=== PATIENT | female | born 1960 | race Caucasian/White ===

== ENCOUNTER 2017-10-25 07:01 | Day surgery (SDC) | payer OTHER, SELFPAY ==
--- NOTE | 2017-10-25 | COLBX_PTH ---
PATIENT: ROMULO BEAVERS LOC: EN U#:[id number] AGE/SX: 57/F ROOM: RE10/25/[address]: Dr. Edward Jaramillo MD : 1960 BED: DIS: 10/25/2017 SPEC #: [id number] RECD: 10/25/17 15:05 STATUS: MAGDY ERNST #: [id number] NAHUM: 10/25/17 00:[address]: Edward Jaramillo DEPT: SURGICAL PATHOLOGY RECD BY: Marcos Hwang ENTERED: 10/25/17 15:06 SP TYPE: COLON BX OTHR DR: Dr. Miquel Flynn MD Tissues: A - Ascending colon B - Ascending colon C - Descending colon D - Sigmoid colon biopsy E - Rectum, NOS Procedures: Surgery Specimen Level IV HEADER OPERATION: Colonoscopy PRE-OP DIAGNOSIS: Screening TISSUE SUBMITTED: A ? Mid ascending colon polyps (2), B ? Distal ascending colon polyp, C ? Descending colon polyp, D ? 30 cm sigmoid colon polyp, E ? Rectal polyps (2) MICROSCOPIC DIAGNOSIS A. Mid ascending colon polyps, biopsy: Hyperplastic polyps (two fragments). B. Distal ascending colon polyp, biopsy: Fragments of hyperplastic polyp. C. Descending colon polyp, biopsy: Hyperplastic polyp. D. Sigmoid colon polyp at 30 cm, biopsy: Hyperplastic polyp. E. Rectal polyps, biopsy: Hyperplastic polyps (two fragments). AM:yamilex 10/26/17 MICROSCOPIC DESCRIPTION Slides are reviewed. GROSS DESCRIPTION A - Received in fixative is one container labeled with the patient's name and designated ascending colon polyps x2 (mid). The specimen consists of two pieces of titus-pink polyp measuring 0.5 x 0.3 x 0.3 cm and 0.6 x 0.6 x 0.3 cm. The specimen is totally submitted in one cassette. B - Received in fixative is one container labeled with the patient's name and designated ascending colon polyp. The specimen consists of two irregular fragments of light titus soft tissue that measure 1 x 0.3 x 0.1 cm. The specimen is totally submitted in one cassette. C - Received in fixative is one container labeled with the patient's name and designated descending colon polyp. The specimen consists of one irregular fragment of light titus soft tissue that measures 0.6 x 0.3 x 0.1 cm. The specimen is totally submitted in one cassette. D - Received in fixative is one container labeled with the patient's name and designated sigmoid colon polyp at 30 cm. The specimen consists of a pink-red polyp measuring 1.7 x 1.5 x 1 cm. The apparent base is inked. The polyp is sectioned and submitted entirely in one cassette. E - Received in fixative is one container labeled with the patient's name and designated rectal polyps. The specimen consists of two irregular fragments of light titus soft tissue that in aggregate measure 0.4 x 0.2 x 0.1 cm. The specimen is totally submitted in one cassette. / SJ:rg 10/25/17 TC:5 CPT: 95211 x5
[2017-10-25 07:21] VITALS: BP 98/62; PULSE 79; RESP 16; TEMP 36.9; O2SAT 96; BMI 29.9
--- NOTE | 2017-10-25 07:45 | H&P.OPEN ---
Past Medical/Surgical History - Planned Operation Planned Operative Procedure/s: COLONOSCOPY Date of Operative Procedure: 10/25/17 Permit Signed: No S.O.S: No Is This Patient Having a Total Joint: No - Previous Hospitalizations/Surgeries HX Hospitalizations: Yes - 2018 HX of Surgeries: PITITUITARY TUMOR REMOVED/ENDOSCOPIC, DR DEL ANGEL IN [place], [place] 09/24/17. CARPAL TUNNEL BILAT 2013? TONSILS CHILD Any Problems With Anesthesia: No You/Your Family Experience Fever (Hyperthermia) With Anes: No Cholinesterase deficiency: No - Cardiovascular Hx Chest Pain within Last 2 months: No Hx of Irregular Heartbeat and/or Afib: No - ?MURMUR PER HX Hx Heart Attack: No Hx Congestive Heart Failure: No Hx Rheumatic Fever: No Hx Hypertension: No Hx Internal Defibrillator: No Hx Pacemaker: No Hx Cardiac Catheterization: No Hx Cardiac Surgery/Stents/Etc.: No Hx Stress Test: No - ECHO 2010 HX Edema: Yes - PER HX,RESOLVED Hx Pain in Legs when Walking/Leg Cramps: No - Respiratory Chronic Cough: No HX of Shortness of Breath: No Hoarseness: No Hx Chronic Obstructive Pulmonary Disease (COPD): No Hx Asthma: No Hx Emphysema: No Hx Sleep Apnea: No Hx Oxygen Use at Home: No Hx Respiratory Tract Infection/Cold (presently): No Do You Snore Loudly (louder than talking or can be heard): No Do You Often Feel Tired/ Fatigued/ Sleepy Dring Daytime?: No Has Anyone Observed You Stop Breathing During Sleep?: No Result (for STOP score): Negative Hx Smoking: Yes - QUIT 08/2017, FORMER 30 YR HX Smoking Status: Former smoker - Gastrointestinal Hx Gastroesophageal Reflux: No Hx Gastrointestinal Disorders: No - HERE FOR SCREENING Hx Gastrointestinal Bleed: No Hx Ulcer: No Hx Hiatal Hernia: No Difficulty Chewing/Swallowing: No Recent Onset of Swallowing Problems: No Special diet followed at home: No Hx Unplanned Weight Loss of 20#: No HX Unplanned Weight Gain of 20#: No - Neurological Hx Seizures: No HX Syncope/Blackout Spells/Unconsciousness: No Hx CVA/Stroke: No Hx Transient Ischemic Attacks (TIA): No Hx Multiple Sclerosis: No Hx Parkinson's Disease: No Hx Head/Neck Injury: Yes - RECENT SURGERY, PITUITARY TUMOR Hx Headaches: No Hx Back Injury/Pain: No Recent Onset of Speech Difficulty: No Restless Legs: No Does patient have nerve stimulator: No Patient instructed to have device shut off: No Rep notified?: No - Blood Disorder Hx Leukemia: No Bleeding Tendencies: No Hx Deep Vein Thrombosis: No Hx High Cholesterol: Yes - ON MED Blood Transmitted Disease: No Hx Hepatitis: No Hx Cirrhosis: No Hx Anemia: No Hx Blood Disorders: No - Reproduction : No Is Patient Lactating: No Hx Hysterectomy: No Hx Tubal Ligation: No Are You Post Menopause: Yes - Genitourinary Hx Renal Disease: No - Musculoskeletal Hx Arthritis: No Hx Rheumatoid Arthritis: No Hx Gout: No Recent Onset of an Orthopedic Problem: No - Endocrine Hx Diabetes: No Thyroid Disease: No Hx Steroid Therapy: No - Psycho/Social Hx Substance Use: No Hx Alcohol Use: Yes - 1-2 BEERS/WEEK Hx Anxiety: No Hx Depression: No Mental Illness: No Hx Dementia: No - Miscellaneous Hx Cancer: No Recent Exposure to Contagious Disease: No Active MRSA: No Hx of C-Diff: No Any Loose Teeth: Yes - MISSING TEETH, GETTING IMPLANTS Additional information pertinent to anesthesia:: PHONE INTERVIEW. STATES HX ACROMEGALY, TREATED. Allergies bupropion [From Wellbutrin] Allergy (Verified 10/19/17 15:15) Itching Home Medications Medication Instructions Recorded Simvastatin [Zocor] 40 mg PO QHS 10/19/17 - Discharge Is Pt Admitted From a Long-Term, or a Chcf: No Who Could Help: FAMILY After D/C, Where Do you Plan to Go: Return Home - Physical Exam General: Alert, Oriented x3, Cooperative Neck: No JVD Lungs: Normal air movement Cardiovascular: Regular rate, Regular Rhythm Abdomen: Soft, Non Tender, Non-Distended Vital Signs Temp Pulse Resp BP Pulse Ox 98.4 F 79 16 98/62 96 10/25/17 07:21 10/25/17 07:21 10/25/17 07:21 10/25/17 07:21 10/25/17 07:21 Oxygen Delivery Method Room Air Weight: 169 lb 5.04 oz Body Mass Index (BMI) 29.9 Assessment/Plan 57-year-old female for screening colonoscopy 1. Patient reports she is having no issues at this current time. No bleeding or abdominal pain. No inadvertent weight loss. She has never had a colonoscopy in the past and has no family history of colon cancer. 2. I explained endoscopy in detail to the patient. I explained the risks including but not limited to stroke or heart attack with anesthesia, perforation of the GI tract, bleeding, infection. I explained that any of these could necessitate further emergency surgery. The patient understands and all questions were answered sufficiently. The patient wishes to proceed with procedure. Edward Jaramillo MD Pager: [facility] [address], [facility] [address] [place] [address] Office: Surgery Risks - Colonoscopy Risks Include but are not Limited To: Risks include but are not limited to: Bleeding, perforation requiring further surgery, inability to complete colonoscopy requiring barium enema.
--- NOTE | 2017-10-25 08:43 | PCM.OPRPT ---
Problem List (1) Screen for colon cancer Status: Acute Report of Operation Date of Procedure: 10/25/17 Pre-Operative Diagnosis: Screening colonoscopy Post-Operative Diagnosis: 1. Multiple polyps. 2. Diverticulosis Surgery/Procedure Performed:: Colonoscopy with snare polypectomy ?9 Description of Surgical Findings:: The patient had multiple polyps both sessile and pedunculated. Specimen's removed: 1. Mid ascending colon polyps ?2. 2. Distal ascending colon polyp. 3. Descending colon polyp. 4. Sigmoid colon polypnot retrieved. 5. Sigmoid colon polyp at 30 cm. 6. Distal sigmoid colon polypnot retrieved. 7. Rectal polyps ?2 Description of Procedure: The major risks and benefits associated with the procedure were explained to the patient in detail. The patient verbalized understanding and agreement with the same. The patient was brought to the endoscopy suite. After adequate sedation was achieved, the patient was placed in the left lateral decubitus position and a digital rectal exam was performed. This examination was within normal limits. A well-lubricated colonoscope was then inserted into the rectum and advanced under direct visualization to the level of the cecum. The bowel prep was fair. The cecum was identified by both visual and anatomic landmarks. A photograph was taken of the end of the cecum. The scope was then fully withdrawn while examining the color, texture, anatomy and integrity of the mucosa from the cecum to the anal canal. The patient had several polyps. The patient had 2 sessile polyps in the mid ascending colon which were taken with hot snare. The patient also had a polyp in the distal ascending colon which was also taken with a hot snare. The patient had similar polyps in the descending colon. The patient did have a large pedunculated polyp at 30 cm in the sigmoid colon which was taken with cautery snare. The patient also had several rectal polyps which appeared hyperplastic and several of these were biopsied with hot snare. Over 6 minutes were taken to examine the colonic mucosa. Upon reaching the rectum the scope was retroflexed to examine the distal rectal vault. The scope was then straightened and was completely retrieved upon exiting the anal canal and the procedure was terminated. The patient was then transferred to the recovery room in stable condition. Recommendations for follow up: Due to the several polyps as well as the quality of the bowel prep precluding being able to detect all small sessile polyps I would recommend repeat colonoscopy in one year.
--- NOTE | 2017-10-25 08:46 | OP.PCM_ITS ---
Problem List (1) Screen for colon cancer Status: Acute Report of Operation Date of Procedure: 10/25/17 Pre-Operative Diagnosis: Screening colonoscopy Post-Operative Diagnosis: 1. Multiple polyps. 2. Diverticulosis Surgery/Procedure Performed:: Colonoscopy with snare polypectomy ?9 Description of Surgical Findings:: The patient had multiple polyps both sessile and pedunculated. Specimen's removed: 1. Mid ascending colon polyps ?2. 2. Distal ascending colon polyp. 3. Descending colon polyp. 4. Sigmoid colon polyp?not retrieved. 5. Sigmoid colon polyp at 30 cm. 6. Distal sigmoid colon polyp? not retrieved. 7. Rectal polyps ?2 Description of Procedure: The major risks and benefits associated with the procedure were explained to the patient in detail. The patient verbalized understanding and agreement with the same. The patient was brought to the endoscopy suite. After adequate sedation was achieved, the patient was placed in the left lateral decubitus position and a digital rectal exam was performed. This examination was within normal limits. A well-lubricated colonoscope was then inserted into the rectum and advanced under direct visualization to the level of the cecum. The bowel prep was fair. The cecum was identified by both visual and anatomic landmarks. A photograph was taken of the end of the cecum. The scope was then fully withdrawn while examining the color, texture, anatomy and integrity of the mucosa from the cecum to the anal canal. The patient had several polyps. The patient had 2 sessile polyps in the mid ascending colon which were taken with hot snare. The patient also had a polyp in the distal ascending colon which was also taken with a hot snare. The patient had similar polyps in the descending colon. The patient did have a large pedunculated polyp at 30 cm in the sigmoid colon which was taken with cautery snare. The patient also had several rectal polyps which appeared hyperplastic and several of these were biopsied with hot snare. Over 6 minutes were taken to examine the colonic mucosa. Upon reaching the rectum the scope was retroflexed to examine the distal rectal vault. The scope was then straightened and was completely retrieved upon exiting the anal canal and the procedure was terminated. The patient was then transferred to the recovery room in stable condition. Recommendations for follow up: Due to the several polyps as well as the quality of the bowel prep precluding being able to detect all small sessile polyps I would recommend repeat colonoscopy in one year.
[2017-10-25 08:47] VITALS: BP 114/81; BP 98/62; PULSE 69; RESP 14; TEMP 36.6; O2SAT 100
[2017-10-25 08:50] VITALS: BP 120/67; BP 98/62; PULSE 66; RESP 16; O2SAT 100
[2017-10-25 08:55] VITALS: BP 114/71; BP 98/62; PULSE 66; RESP 16; O2SAT 100
[2017-10-25 09:00] VITALS: BP 111/74; BP 98/62; PULSE 60; RESP 16; TEMP 36.1; O2SAT 99
[2017-10-25 09:18] VITALS: BP 98/62
== END 2017-10-25 09:21 | disposition home or self-care (01) ==
LOC: EN 07:01 → AC 07:03
PROVIDERS: Family Provider Family Medicine; PCP Family Medicine; Visit Provider Surgery
PROC: 0DJD8ZZ Inspection of Lower Intestinal Tract, Via Natural or Artificial Opening Endoscopic (ICD-10-PCS; CPT 45378; principal; 2017-10-25 07:55)
DX: Z12.11 Encounter for screening for malignant neoplasm of colon (principal); K57.90 Diverticulosis of intestine, part unspecified, without perforation or abscess without bleeding; K62.1 Rectal polyp; K63.5 Polyp of colon; E78.00 Pure hypercholesterolemia, unspecified; Z87.891 Personal history of nicotine dependence
CPT/HCPCS: 45380; 45385; 88305; J7120

== ENCOUNTER → 2017-12-09 14:07 | Outpatient (CLI) | payer OTHER, SELFPAY ==
--- NOTE | 2017-12-09 14:09 | ECHOD_ITS ---
Reason For Study: CAD/ASHD Procedure This was a 2D Doppler, Color Flow transthoracic echocardiogram. Exam performed in department. Left Ventricle Normal size and thickness. The estimated ejection fraction is 65 %. No regional wall motion abnormalities noted. Right Ventricle Normal size and thickness. Normal systolic function. Atria Normal left atrium. Normal right atrium. Normal atrial septum. Mitral Valve Posterior leaflet mitral valve prolapse. Mild (1+) mitral valve insufficiency. Tricuspid Valve Normal tricuspid valve. Mild (1+) tricuspid valve insufficiency. Right ventricular systolic pressure estimated to be 24 mmHg. Aortic Valve Normal aortic valve. Trisinus/trileaflet aortic valve. Pulmonic Valve Normal pulmonic valve. Great Vessels Normal aortic root. Normal arch. Normal inferior vena cava. Inferior vena cava collapse with sniff. Pericardium/Pleural No pericardial effusion. Medication Performed a rapid injection of agitated mix of 9 cc saline and 1cc air to assess for atrial septal defect. MMode/2D Measurements & Calculations LVIDd: 5.4 cm IVSd: 0.99 cm Ao root diam: 3.5 cm LVIDs: 3.3 cm LVPWd: 0.82 cm LA dimension: 3.5 cm RVDd: 3.3 cm FS: 38.7 % LAV(MOD-bp): 45.2 ml LA A4 area: 19.5 cm2 RA A4 area: 14.3 cm2 LAV(MOD-bp) Indexed: 24.9 ml/m2 LAV(MOD-sp2): 38.3 ml LAV(MOD-sp4): 49.1 ml Doppler Measurements & Calculations MV E max joshua: 57.8 cm/sec Lat Peak E' Joshua: 9.6 cm/sec Med Peak E' Joshua: 6.6 cm/sec MV A max joshua: 52.4 cm/sec E/E' lat: 6.1 E/E' med: 8.8 MV E/A: 1.1 Ao V2 max: 194.8 cm/sec LV V1 max: 185.4 cm/sec PA V2 max: 96.1 cm/sec Ao max P.2 mmHg LV V1 max P.7 mmHg Ao V2 mean: 147.8 cm/sec Ao mean P.5 mmHg Ao V2 VTI: 41.4 cm TR max joshua: 216.5 cm/sec TR max P.8 mmHg Interpretation Summary The estimated ejection fraction is 65 %. Mild posterior leaflet mitral valve prolapse. Mild (1+) mitral valve insufficiency. Mild (1+) tricuspid valve insufficiency. Right ventricular systolic pressure estimated to be 24 mmHg. Compared to echo report dated 12/29/2010, no appreciable changes noted. Ordering Physician: Kd Gomez Referring Physician: Miquel Flynn Performed By: Griselda Antunez RDCS, RVT
== END ==
PROVIDERS: Family Provider Family Medicine; PCP Family Medicine; Visit Provider Internal Medicine Cardiovascular Disease
DX: R00.2 Palpitations (principal); F17.200 Nicotine dependence, unspecified, uncomplicated; E22.0 Acromegaly and pituitary gigantism
CPT/HCPCS: 93306; A4216

== ENCOUNTER → 2018-05-26 14:16 | Outpatient (CLI) | payer OTHER, SELFPAY ==
[2018-05-26 12:18] LABS: Hemoglobin A1c 5.7 % (4.2-6.3)
[2018-05-26 12:26] LABS: Anion Gap 8 (5-15); BUN 15 mg/dL (7-18); BUN/Creat Ratio 16.9 RATIO (10-20); Calcium,Total 9.6 mg/dL (8.5-10.1); Chloride 105 mmol/L (98-107); Cholesterol 195 mg/dL (200); Creatinine, Serum 0.89 mg/dL (0.55-1.02); EST Glomerular Filtration Rate 69 mL/min (>60); Est Glom Filt Rate - Afr Amer 83 mL/min (>60); Glucose 98 mg/dL (74-106); High Density Lipoprotein 60 mg/dL; Potassium 4.7 mmol/L (3.5-5.1); Sodium Level 140 mmol/L (136-145); Triglycerides 102 mg/dL; Very Low Density Lipoprotein 20 mg/dL (5-40)
== END ==
PROVIDERS: Family Provider Family Medicine; PCP Family Medicine; Visit Provider Family Medicine
DX: E78.5 Hyperlipidemia, unspecified (principal); R73.01 Impaired fasting glucose
CPT/HCPCS: 36415; 80048; 80061; 83036

== ENCOUNTER → 2018-08-25 13:36 | Outpatient (CLI) | payer OTHER, SELFPAY ==
--- NOTE | 2018-08-25 13:38 | CT_ITS ---
STUDY: LOW DOSE CT LUNG CANCER SCREENING REASON FOR EXAM: Female, 58 years old. Long history of smoking RADIATION DOSAGE (If Supplied By Facility): CTDIvol = ( 3.02 ) mGy, DLP = ( 104.58 ) mGycm TECHNIQUE: No contrast was administered. Low dose technique was utilized (average mAS-38 and kVp 120). 1.25 mm axial source images with a slice interval of 1.25-mm were reconstructed in lung windows. 2.5 mm axial source images with a slice interval of 2.5-mm were reconstructed in lung windows. 5.0 mm axial source images with a slice interval of 5.0-mm were reconstructed in soft tissue windows. Nodule measured using lung windows on PACS and/or independent workstation with automated measurement of minimum and maximum diameter. Nodule measurement reported as average diameter rounded to the nearest whole number. Growth is defined as an increase ins size of greater than 1.5 mm. COMPARISON: None. NODULES: There is a calcified granuloma in the lateral basal segment of right lung lower lobe measures 5 mm. 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 There is no demonstrated pleural abnormality. Normal heart and pericardium. Normal mediastinum. Normal hilar regions. Normal unenhanced pulmonary arteries. Normal aorta arch and descending thoracic aorta. There are multi-level degenerative changes of the thoracic spine. There is a moderate compression fracture of L1. There is no demonstrated abnormality of the visualized upper abdomen. CT/Low Dose CT Lung Screening IMPRESSION: Lung-RADS category 2. Benign findings. Recommendation: Routine screening CT scan in one year. IMPORTANT NOTES FOR USE: ACR Lung-RADS Version 1.0 Assessment Categories Release Date: December 31, 2013 Category: Coded 0-4 bases on nodule(s) with highest degree of suspicion. Negative screen is defined as categories 1 and 2; a positive screen is defined as categories 3 and 4. Category 3 and 4A nodules that are unchanged on interval CT should be coded as category 2, and individuals returned to screening in 12 months. Category 4X: Category 3 or 4 nodules with additional imaging findings that increase the suspicion of lung cancer, such as spiculation, GGN that doubles in size in 1 year, enlarged lymph notes, etc. Category Modifiers: S (significant finding unrelated to lung cancer) and C (prior history of treated lung cancer) may be added to the 0-4 Lung-RADS Electronically Signed: Jeffrey Ibanez MD at 8:02 EST Tel , Service support ,
== END ==
PROVIDERS: Family Provider Family Medicine; PCP Family Medicine; Referring Provider Family Medicine; Visit Provider Family Medicine
DX: Z12.11 Encounter for screening for malignant neoplasm of colon (principal); Z87.891 Personal history of nicotine dependence
CPT/HCPCS: G0297

== ENCOUNTER → 2018-11-14 12:16 | Outpatient (CLI) | payer OTHER, SELFPAY ==
--- NOTE | 2018-11-14 12:23 | MRI_ITS ---
STUDY: MRI BRAIN WITH AND WITHOUT CONTRAST (ATTENTION PITUITARY GLAND) REASON FOR EXAM: Female, 58 years old. 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 Gadavist 8 IV was administered for the contrast portion of the examination. COMPARISON: January 04, 2018 FINDINGS: Postoperative changes involving the pituitary gland. No recurrent or residual pituitary nodules or masses are seen. Cavernous sinuses are normal. The pituitary stalk is normal. The optic chiasm is normal. Normal size of the ventricles and extra-axial spaces for the patient's age. 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 Normal bilateral basal ganglia. Normal thalami. Normal flow voids within the major intracranial circulation suggesting patency by spin echo criteria. Normal venous enhancement. There is no enhancing intra-axial or extra-axial abnormality. There is no extra-axial fluid accumulation. Normal tectal plate and pineal gland. Normal midbrain, jose david and medulla. Normal cerebellum. Normal basal cisterns. Normal bilateral temporal bones. Normal bilateral internal auditory canals. No demonstrated orbital abnormality, within the constraints of a routine brain study. Postoperative changes involving the central sphenoid. Normal calvarium and skull base. Normal visualized upper cervical spine. Normal visualized soft tissue structures. MRI/Brain W/WO Contrast IMPRESSION: Postoperative changes as described. No recurrent or residual pituitary nodule or mass is seen. 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 Electronically Signed: Junior Juárez MD at 14:16 EDT Tel , Service support ,
[2018-11-14 13:01] LABS: CREATININE FINGERSTICK 0.9 mg/dL (0.55-1.02); EGFR FINGERSTICK > 60.0000 mL/min (>60)
== END ==
PROVIDERS: Family Provider Family Medicine; PCP Family Medicine; Referring Provider Internal Medicine Endocrinology, Diabetes & Metabolism; Visit Provider Internal Medicine Endocrinology, Diabetes & Metabolism
DX: E22.0 Acromegaly and pituitary gigantism (principal)
CPT/HCPCS: 70553; A9585

== ENCOUNTER → 2019-08-15 08:03 | Outpatient (CLI) | payer OTHER, SELFPAY ==
[2019-08-15 12:37] LABS: Hemoglobin A1c 5.9 % (4.2-6.3)
[2019-08-15 12:42] LABS: Anion Gap 3 (5-15); BUN 17 mg/dL (7-18); Calcium,Total 9.1 mg/dL (8.5-10.1); Chloride 109 mmol/L (98-107); Cholesterol 193 mg/dL (200); EST Glomerular Filtration Rate 68 mL/min (>60); Est Glom Filt Rate - Afr Amer 82 mL/min (>60); Glucose 98 mg/dL (74-106); High Density Lipoprotein 61 mg/dL; Potassium 4.3 mmol/L (3.5-5.1); Sodium Level 141 mmol/L (136-145); T4 Free Direct 0.76 ng/dL (0.76-1.46); Thyroid Stim Hormone (TSH) 0.53 uIU/mL (0.358-3.74); Triglycerides 67 mg/dL; Very Low Density Lipoprotein 13 mg/dL (5-40)
== END ==
PROVIDERS: Family Provider Family Medicine; PCP Family Medicine; Referring Provider Family Medicine; Visit Provider Family Medicine
DX: E78.5 Hyperlipidemia, unspecified (principal); R73.01 Impaired fasting glucose
CPT/HCPCS: 36415; 80048; 80061; 83036; 84439; 84443

== ENCOUNTER → 2020-09-30 17:45 | Outpatient (CLI) | payer OTHER, SELFPAY | PROVIDERS: PCP Family Medicine; Referring Provider Family Medicine; Visit Provider Family Medicine | DX: U07.1 COVID-19 (principal); R50.9 Fever, unspecified; R53.83 Other fatigue; R05 Cough | CPT/HCPCS: 87635; C9803; U0003 ==

== ENCOUNTER → 2020-12-16 08:07 | Outpatient (CLI) | payer OTHER, SELFPAY ==
[2020-12-16 09:21] LABS: AST(SGOT) 15 U/L (15-37); Alanine Aminotransfer ALT/SGPT 25 U/L (13-56); Albumin, Serum 3.7 g/dL (3.2-5.0); Alkaline Phosphatase 52 U/L (45-117); Anion Gap 6 (5-15); BUN 14 mg/dL (7-18); BUN/Creat Ratio 16.1 RATIO (10-20); Calcium,Total 9.6 mg/dL (8.5-10.1); Chloride 106 mmol/L (98-107); Cholesterol 223 mg/dL (200); Creatinine, Serum 0.87 mg/dL (0.55-1.02); EST Glomerular Filtration Rate 70 mL/min (>60); Est Glom Filt Rate - Afr Amer 85 mL/min (>60); Free T3 2.8 pg/mL (2.18-3.98); Globulin 3.7 g/dL (2.2-4.2); Glucose 98 mg/dL (74-106); High Density Lipoprotein 58 mg/dL; Potassium 4.3 mmol/L (3.5-5.1); Protein, Total 7.4 g/dL (6.4-8.2); Sodium Level 140 mmol/L (136-145); Thyroid Stim Hormone (TSH) 0.46 uIU/mL (0.358-3.74); Triglycerides 140 mg/dL; Very Low Density Lipoprotein 28 mg/dL (5-40)
== END ==
PROVIDERS: PCP Family Medicine; Referring Provider Family Medicine; Visit Provider Family Medicine
DX: E22.0 Acromegaly and pituitary gigantism (principal); E78.5 Hyperlipidemia, unspecified; E04.1 Nontoxic single thyroid nodule
CPT/HCPCS: 36415; 80053; 80061; 84439; 84443; 84481

== ENCOUNTER → 2020-12-26 09:56 | Outpatient (CLI) | payer OTHER, SELFPAY ==
[2020-12-26 09:18] VITALS: BMI 30.5
[2020-12-26 12:50] LABS: Vitamin D,25 Hydroxy 29.5 ng/mL
[2020-12-26 12:53] LABS: Hemoglobin A1c 5.7 % (3.8-5.6)
[2020-12-26 13:17] LABS: AST(SGOT) 19 U/L (15-37); Alanine Aminotransfer ALT/SGPT 25 U/L (13-56); Albumin, Serum 3.8 g/dL (3.2-5.0); Alkaline Phosphatase 61 U/L (45-117); Anion Gap 4 (5-15); BUN 14 mg/dL (7-18); BUN/Creat Ratio 16.5 RATIO (10-20); Calcium,Total 9.4 mg/dL (8.5-10.1); Chloride 106 mmol/L (98-107); Creatinine, Serum 0.85 mg/dL (0.55-1.02); EST Glomerular Filtration Rate 72 mL/min (>60); Est Glom Filt Rate - Afr Amer 87 mL/min (>60); Ferritin 53 ng/mL (8-252); Globulin 3.7 g/dL (2.2-4.2); Glucose 103 mg/dL (74-106); Luteinizing Hormone 25.7 mIU/mL; Potassium 4.2 mmol/L (3.5-5.1); Prolactin 8.6 ng/mL; Protein, Total 7.5 g/dL (6.4-8.2); Sodium Level 138 mmol/L (136-145); T4 Free Direct 0.78 ng/dL (0.76-1.46); Thyroid Stim Hormone (TSH) 0.52 uIU/mL (0.358-3.74)
[2020-12-28 08:06] LABS: Somatomedin C 198 ng/mL (57-202)
== END ==
PROVIDERS: PCP Family Medicine; Referring Provider Internal Medicine Endocrinology, Diabetes & Metabolism; Visit Provider Internal Medicine Endocrinology, Diabetes & Metabolism
DX: E04.1 Nontoxic single thyroid nodule (principal); E22.0 Acromegaly and pituitary gigantism; E55.9 Vitamin D deficiency, unspecified; E61.1 Iron deficiency
CPT/HCPCS: 36415; 80053; 82306; 82728; 83001; 83002; 83036; 84146; 84305; 84439; 84443

== ENCOUNTER → 2020-12-29 13:35 | Outpatient (CLI) | payer OTHER, SELFPAY ==
[2020-12-26 09:18] VITALS: BMI 30.5
[2020-12-31 12:19] LABS: HPV APTIMA, High Risk Negative (Negative)
== END ==
PROVIDERS: PCP Family Medicine; Visit Provider Obstetrics & Gynecology
DX: Z12.4 Encounter for screening for malignant neoplasm of cervix (principal)
CPT/HCPCS: 87624; 88175; G0145

== ENCOUNTER → 2021-01-12 14:39 | Outpatient (CLI) | payer OTHER, SELFPAY ==
[2020-12-26 09:18] VITALS: BMI 30.5
--- NOTE | 2021-01-12 14:43 | BI_ITS ---
MAMMOGRAPHY - BILATERAL SCREENING REASON FOR EXAM: Female, 60 years old. Routine annual screening examination. PERTINENT HISTORY: Non-contributory. TECHNIQUE: Digital bilateral breast michael (3D mammographic acquisition) in the CC and MLO projections. 2-D mediolateral oblique (MLO) and craniocaudad (CC) views of both breasts were obtained. CAD: Full Field Digital Mammography with Computer Added Detection was performed. COMPARISON: Comparison is made with prior study dated 02/22/2013. FINDINGS: Breast Composition: The breasts are extremely dense, which lowers the sensitivity of mammography. There are no dominant masses or suspicious calcifications. No other significant abnormalities are identified. There has been no significant change since the prior study. BI/SCRN MAMM (CAD)W/MICHAEL BILAT IMPRESSION: Stable bilateral screening mammogram. Yearly follow-up mammogram recommended. (A) ASSESSMENT CATEGORY: BIRADS Category 1: Negative. A letter regarding these results will be sent to the patient by the facility within 30 days. Approximately 10% of breast cancers are not detected by mammography. A normal mammogram should not delay biopsy of a clinically suspicious abnormality. [id number] Electronically Signed: Vijay Munroe MD at 15:16 EDT , Service support ,
== END ==
PROVIDERS: PCP Family Medicine; Referring Provider Obstetrics & Gynecology; Visit Provider Obstetrics & Gynecology
DX: Z12.31 Encounter for screening mammogram for malignant neoplasm of breast (principal)
CPT/HCPCS: 77063; 77067

== ENCOUNTER → 2022-08-14 | Outpatient (CLI) | payer OTHER, SELFPAY ==
[2022-08-14 11:52] LABS: Microalbumin:Creatinine Ratio 255.6 mg/g CRE (<30 mg/g CRE)
[2022-08-14 13:36] LABS: AST(SGOT) 16 U/L (15-37); Alanine Aminotransfer ALT/SGPT 23 U/L (13-56); Albumin, Serum 3.5 g/dL (3.2-5.0); Alkaline Phosphatase 64 U/L (45-117); Anion Gap 5 (5-15); BUN 15 mg/dL (7-18); BUN/Creat Ratio 16.9 RATIO (10-20); Calcium,Total 9.2 mg/dL (8.5-10.1); Chloride 108 mmol/L (98-107); Cholesterol 207 mg/dL (200); Creatinine, Serum 0.88 mg/dL (0.55-1.02); EST Glomerular Filtration Rate 68 mL/min (>60); Est Glom Filt Rate - Afr Amer 83 mL/min (>60); Globulin 3.6 g/dL (2.2-4.2); Glucose 104 mg/dL (74-106); High Density Lipoprotein 62 mg/dL; Potassium 4.2 mmol/L (3.5-5.1); Prolactin 11.1 ng/mL; Protein, Total 7.1 g/dL (6.4-8.2); Sodium Level 139 mmol/L (136-145); T4 Free Direct 0.81 ng/dL (0.76-1.46); Triglycerides 104 mg/dL; Very Low Density Lipoprotein 21 mg/dL (5-40)
[2022-08-19 10:24] LABS: Insulin Like Growth Factor 197 ng/mL (57-202)
== END | disposition home or self-care (01) ==
LOC: LAB 10:23
PROVIDERS: PCP Family Medicine; Referring Provider Internal Medicine Endocrinology, Diabetes & Metabolism; Visit Provider Internal Medicine Endocrinology, Diabetes & Metabolism
DX: D35.2 Benign neoplasm of pituitary gland (principal); E04.1 Nontoxic single thyroid nodule; E78.5 Hyperlipidemia, unspecified; Z86.39 Personal history of other endocrine, nutritional and metabolic disease
CPT/HCPCS: 36415; 80053; 80061; 82043; 82533; 82570; 84146; 84305; 84439; 84443; 84481

== ENCOUNTER → 2022-08-17 | Outpatient (CLI) | payer OTHER, SELFPAY ==
--- NOTE | 2022-08-17 13:30 | CT_ITS ---
STUDY: LOW DOSE CT LUNG CANCER SCREENING REASON FOR EXAM: Female, 61 years old. Lung Cancer screening -- and gt; 20 pk yr asymptomatic; former smoker RADIATION DOSAGE (If Supplied By Facility): CTDIvol = ( 2.39 ) mGy, DLP = ( 77.43 ) mGycm TECHNIQUE: No contrast was administered. Low dose technique was utilized (average mAS-38 and kVp 120). 1.25 mm axial source images with a slice interval of 1.25-mm were reconstructed in lung windows. 2.5 mm axial source images with a slice interval of 2.5-mm were reconstructed in lung windows. 5.0 mm axial source images with a slice interval of 5.0-mm were reconstructed in soft tissue windows. COMPARISON: Comparison is made with prior examination dated 08/25/2018. NODULES: Stable calcified granuloma in the lateral basal segment of the right lower lung. This measures 5 mm Emphysema: Mild degree of emphysematous changes. Endobronchial lesion: None Aorta: Atherosclerotic calcific plaques. CORONARY ARTERIES: Coronary artery calcification is seen. Heart: Unremarkable Pulmonary artery: Unremarkable Mediastinal nodes: Small benign-appearing mediastinal lymph nodes. Other chest and abdominal findings: CT/Low Dose CT Lung Screening IMPRESSION: Lung-RADS category 2 - Continue annual screening with LDCT in 12 months. IMPORTANT NOTES FOR USE: ACR Lung-RADS Version 1.1 Assessment Categories Release Date: 2018 Category: Coded 0-4 bases on nodule(s) with highest degree of suspicion. Negative screen is defined as categories 1 and 2; a positive screen is defined as categories 3 and 4. Category 3 and 4A nodules that are unchanged on interval CT should be coded as category 2, and individuals returned to screening in 12 months. Category 4X: Category 3 or 4 nodules with additional imaging findings that increase the suspicion of lung cancer, such as spiculation, GGN that doubles in size in 1 year, enlarged lymph notes, etc. Category Modifiers: S (significant finding unrelated to lung cancer) Electronically Signed: Vijay Munroe MD at 14:21 EST ,
== END | disposition home or self-care (01) ==
LOC: CT 13:30
PROVIDERS: PCP Family Medicine; Referring Provider Nurse Practitioner Family; Visit Provider Nurse Practitioner Family
DX: Z87.891 Personal history of nicotine dependence (principal); I70.0 Atherosclerosis of aorta; I25.10 Atherosclerotic heart disease of native coronary artery without angina pectoris; Z12.2 Encounter for screening for malignant neoplasm of respiratory organs; R91.8 Other nonspecific abnormal finding of lung field
CPT/HCPCS: 71271

== ENCOUNTER → 2022-10-01 | Outpatient (CLI) | payer OTHER, SELFPAY ==
--- NOTE | 2022-10-01 09:19 | US_ITS ---
STUDY: ULTRASOUND BREAST - LEFT REASON FOR EXAM: Female, 62 years old. Lateral breast lump. TECHNIQUE: Axial and longitudinal images of the LEFT breast were performed with a high resolution ultrasound transducer. # OF IMAGES: 29 COMPARISON: Comparison is made with prior mammogram done earlier today. FINDINGS: LEFT Breast: The lateral half of the left breast was examined with ultrasound. There is dense fibroglandular tissue. No solid or cystic mass lesion is seen. US/Breast Limited Unilateral IMPRESSION: No sonographic abnormality is seen. ASSESSMENT CATEGORY: BIRADS Category 1: Negative. A letter regarding these results will be sent to the patient by the facility within 30 days. Electronically Signed: Vijay Munroe MD at 11:12 EST ,
--- NOTE | 2022-10-01 09:19 | BI_ITS ---
MAMMOGRAPHY - BILATERAL DIAGNOSTIC REASON FOR EXAM: Female, 62 years old. Left lateral breast mass. PERTINENT HISTORY: Non-contributory. TECHNIQUE: Digital bilateral breast thelma (3D mammographic acquisition) in the CC and MLO projections. 2-D mediolateral oblique (MLO) and craniocaudad (CC) views of both breasts were obtained. CAD: Full Field Digital Mammography with Computer Added Detection was performed. COMPARISON: Comparison is made with prior study of 01/12/2021 and 02/22/2013. FINDINGS: Breast Composition: The breasts are extremely dense, which lowers the sensitivity of mammography. There are no dominant masses or suspicious calcifications. No other significant abnormalities are identified. There has been no significant change since the prior study. BI/DIAG MAMM W/CAD, BILAT IMPRESSION: Stable bilateral diagnostic mammogram. With the patient''s history of a palpable lump in the lateral aspect of the left breast, correlation with ultrasound is recommended. ASSESSMENT CATEGORY: BIRADS Category 0: Incomplete. Need additional imaging evaluation. A letter regarding these results will be sent to the patient by the facility within 30 days. Approximately 10% of breast cancers are not detected by mammography. A normal mammogram should not delay biopsy of a clinically suspicious abnormality. Electronically Signed: Vijay Munroe MD at 10:25 EST ,
== END | disposition home or self-care (01) ==
PROVIDERS: PCP Family Medicine; Referring Provider Obstetrics & Gynecology Gynecology; Visit Provider Obstetrics & Gynecology Gynecology
DX: Z01.419 Encounter for gynecological examination (general) (routine) without abnormal findings (principal); R92.2 Inconclusive mammogram; N63.0 Unspecified lump in unspecified breast; R19.04 Left lower quadrant abdominal swelling, mass and lump; Z86.39 Personal history of other endocrine, nutritional and metabolic disease
CPT/HCPCS: 76642; 77062; 77066; G0279

== ENCOUNTER → 2022-11-05 | Outpatient (CLI) | payer OTHER, SELFPAY ==
[2022-11-05 17:25] LABS: Thyroid Stim Hormone (TSH) 0.08 uIU/mL (0.358-3.74)
== END | disposition home or self-care (01) ==
LOC: LAB 14:50
PROVIDERS: PCP Family Medicine; Visit Provider Internal Medicine Endocrinology, Diabetes & Metabolism
DX: R94.6 Abnormal results of thyroid function studies (principal)
CPT/HCPCS: 36415; 84439; 84443; 84481

== ENCOUNTER → 2023-01-03 | Outpatient (CLI) | payer OTHER, SELFPAY ==
--- NOTE | 2023-01-03 12:23 | US_ITS ---
STUDY: ULTRASOUND OF THE FEMALE PELVIS - COMPLETE REASON FOR EXAM: Female, 62 years old. LLQ MASS/ fullness felt by doctor during pap smear -- hx of acromegaly LMP: Patient is postmenopausal. TECHNIQUE: Transabdominal and Transvaginal TECHNICAL QUALITY: Adequate. COMPARISON: None. FINDINGS: The uterus is retroverted and is in a midline position. The uterus measures 6.6 cm x 2.4 cm x 3.6 cm. There is a Nabothian cyst of the cervix. The endometrium is thickened and measures 6 mm in thickness, and is heterogeneous (striated). There is no demonstrated endometrial mass. There is no demonstrated myometrial mass. I.U.D. - The patient does not have an I.U.D. The right ovary is visualized. The right ovary measures 1.9 cm x 1.7 cm x 1.2 cm. There is no right ovarian cyst or ovarian mass. There is no visualized right adnexal mass or complex lesion. There is normal arterial and normal venous vascularity. The left ovary is visualized. The left ovary measures 2 cm x 1.6 x 1.4 cm. There is no left ovarian cyst or ovarian mass. There is no visualized left adnexal mass or complex lesion. There is normal arterial and normal venous vascularity. There is minimal fluid in the cul-de-sac. The pre void volume of the bladder was 219 ml. US/Pelvic w/ Transvaginal IMPRESSION: Endometrial thickening. Electronically Signed: Vijay Munroe MD at 15:06 EDT ,
== END | disposition home or self-care (01) ==
PROVIDERS: PCP Family Medicine; Referring Provider Obstetrics & Gynecology Gynecology; Visit Provider Obstetrics & Gynecology Gynecology
DX: N63.0 Unspecified lump in unspecified breast (principal); R19.04 Left lower quadrant abdominal swelling, mass and lump; Z12.4 Encounter for screening for malignant neoplasm of cervix; Z86.39 Personal history of other endocrine, nutritional and metabolic disease
CPT/HCPCS: 76830; 76856

== ENCOUNTER → 2023-09-13 | Outpatient (CLI) | payer MEDICARE, BC, SELFPAY ==
--- NOTE | 2023-09-13 13:29 | CT_ITS ---
STUDY: LOW DOSE CT LUNG CANCER SCREENING REASON FOR EXAM: Female, 63 years old. Lung cancer screening. The patient smoked 1 pack per day for 50 years. 4 month history of shortness of breath. RADIATION DOSAGE (If Supplied By Facility): CTDIvol = ( 3.02 ) mGy, DLP = ( 99.68 ) mGycm TECHNIQUE: No contrast was administered. Low dose technique was utilized (average mAS-38 and kVp 120). 1.25 mm axial source images with a slice interval of 1.25-mm were reconstructed in lung windows. 2.5 mm axial source images with a slice interval of 2.5-mm were reconstructed in lung windows. 5.0 mm axial source images with a slice interval of 5.0-mm were reconstructed in soft tissue windows. COMPARISON: Comparison is made with prior examination dated August 17, 2022. NODULES: Stable calcified granuloma in the lateral basal segment of the right lower lobe. Emphysema: Mild emphysematous changes. Endobronchial lesion: None Aorta: Atherosclerotic plaque formation CORONARY ARTERIES: Coronary artery calcification is seen. Heart: Unremarkable Pulmonary artery: Unremarkable Mediastinal nodes: Small benign-appearing mediastinal lymph nodes. Other chest and abdominal findings: Small hiatal hernia. CT/Low Dose CT Lung Screening IMPRESSION: Lung-RADS category 2 - Continue annual screening with LDCT in 12 months. IMPORTANT NOTES FOR USE: ACR Lung-RADS Version 1.1 Assessment Categories Release Date: 2018 Category: Coded 0-4 bases on nodule(s) with highest degree of suspicion. Negative screen is defined as categories 1 and 2; a positive screen is defined as categories 3 and 4. Category 3 and 4A nodules that are unchanged on interval CT should be coded as category 2, and individuals returned to screening in 12 months. Category 4X: Category 3 or 4 nodules with additional imaging findings that increase the suspicion of lung cancer, such as spiculation, GGN that doubles in size in 1 year, enlarged lymph notes, etc. Category Modifiers: S (significant finding unrelated to lung cancer) Electronically Signed: Vijay Munroe MD at 14:08 EST ,
--- OUTSIDE RECORDS SUMMARY | 2023-09-13 15:21 | XMS RPT_ITS | CCD ---
Author Name Unknown Address [id number] [place] [id number] Organization [facility] Care Team Providers Care Office Electrician Name Role Phone HASAN, GERMAN Unavailable Unavailable HASAN, GERMAN Unavailable Unavailable HASAN, GERMAN Unavailable Unavailable HASAN, GERMAN Unavailable Unavailable HASAN, GERMAN Unavailable Unavailable HASAN, GERMAN Unavailable Unavailable HASAN, GERMAN Unavailable Unavailable HASAN, GERMAN Unavailable Unavailable HASAN, GERMAN Unavailable Unavailable HASAN, GERMAN Unavailable Unavailable HASAN, GERMAN Unavailable Unavailable HASAN, GERMAN Unavailable Unavailable DANNI MAST, DR DIEGO Primary Care Unavailable OMAIRA JONES, FILIPE Attending Unavailable Allergies Allergy Classification Reported Allergen(s) Allergy Type Date of Onset Reaction(s) Facility (1 source) buPROPion; Translations: [BUPROPION HCL] Drug Allergy [address] [facility] Repository (1 source) NO KNOWN ALLERGIES; Translations: [NO KNOWN ALLERGIES] Propensity to adverse reactions to drug (disorder) [facility] Repository Problems Active Problems Problem Classification Problem Date Documented Da te Episodic/Chronic Other endocrine disorders (2 sources) Acromegaly and pituitary gigantism; Translations: [Disorder of pituitary gland, unspecified] Onset: 07-15-2017 Chronic Unclassified (1 source) Unknown / UNK(Unknown) Onset: 07-14-2017 Past or Other Problems Problem Classification Problem Date Documented Da te Episodic/Chronic Nonmalignant breast conditions (2 sources) Unspecified lump in unspecified breast; Translations: [Unspecified lump in unspecified breast] Onset: 09-20-2022 Episodic Other gastrointestinal disorders (2 sources) Left lower quadrant abdominal swelling, mass and lump; Translations: [Left lower quadrant abdominal swelling, mass and lump] Onset: 09-20-2022 Episodic Other nutritional; endocrine; and metabolic disorders (2 sources) Personal history of other endocrine, nutritional and metabolic disease; Translations: [Personal history of other endocrine, nutritional and metabolic disease] Onset: 09-20-2022 Episodic Unclassified (4 sources) Abnormal results of thyroid function studies; Translations: [Other specified abnormal findings of blood chemistry] Onset: 07-27-2017 Episodic Results Test Name Value Interpretation Reference Range Facil ity Encounters Encounter Date Encounter Type Care Provider Facility Start: 09-20-2022 End: 09-25-[address] JOHNATHON RAZO DO Facility:B Start: 09-20-2022 End: 09-25-2022 Encounter for gynecological examination (general) (routine) without abnormal findings FILIPE CASTANO MD Facility:[facility] Start: 04-12-2018 End: 04-12-2018 Patient encounter [facility] Start: 02-01-2018 Patient encounter [facility] Start: 02-01-2018 End: 02-01-2018 [facility]: 01-04-2018 End: 01-04-2018 Patient encounter [facility] Start: 12-20-2017 End: 12-20-2017 Patient encounter [facility] Start: 11-07-2017 End: 11-07-2017 Patient encounter [facility] Start: 11-01-2017 End: 11-01-2017 Patient encounter [facility] Start: 08-02-2017 End: 08-02-2017 Patient encounter [facility] Start: 07-27-2017 End: 08-02-2017 Patient encounter [facility] Start: 07-15-2017 End: 07-15-2017 Patient encounter [facility] Start: 07-14-2017 End: 07-14-2017 Patient encounter [facility] Payers Date Payer Category Payer Unknown [id number] 1960 Unknown [id number] Summary Purpose Family History No Family History Records FoundNo Family History Records Found Advance Directives No Advanced Directives Records FoundNo Advanced Directives Records Found Additional Source Comments INFORMATION SOURCE (unrecogn ized section and content) DATE CREATED AUTHOR AUTHOR'S DOYLE OVIEDO 02/12/[address] [facility] [place] FOR RECORDS PERTAINING TO PATIENTS WHO ARE OR HAVE BEEN ENROLLED IN A CHEMICAL DEPENDENCY/SUBSTANCEABUSE PROGRAM, SOME INFORMATION MAY BE OMITTED. This clinical summary was aggregated from multiple sources. Caution should be exercised in using it in the provision of clinical care. This summary normalizes information from multiple sources, and as a consequence, information in this document may materially change the coding, format and clinical context of patient data. In addition, data may be omitted in some cases. CLINICAL DECISIONS SHOULD BE BASED ON THE PRIMARY CLINICAL RECORDS. [facility] [employer] [facility]. provides no warranty or guarantee of the accuracy or completeness of information in this document.
== END | disposition home or self-care (01) ==
LOC: CT 13:29
PROVIDERS: PCP Nurse Practitioner Family; Referring Provider Nurse Practitioner Family; Visit Provider Nurse Practitioner Family
DX: Z87.891 Personal history of nicotine dependence (principal); Z12.2 Encounter for screening for malignant neoplasm of respiratory organs
CPT/HCPCS: 71271

== ENCOUNTER → 2023-12-16 | Outpatient (CLI) | payer MEDICARE, BC, SELFPAY ==
--- NOTE | 2023-12-16 11:55 | ECHOD_ITS ---
Reason For Study: MURMUR Procedure This was a 2D Doppler, Color Flow transthoracic echocardiogram. Exam performed in department. Left Ventricle Normal LV size. The estimated ejection fraction is 60 %. Unable to assess diastolic dysfunction. No regional wall motion abnormalities noted. Right Ventricle Normal RV size. Normal systolic function. Atria The left atrium is moderately enlarged. Normal right atrium. No doppler evidence for ASD. Mitral Valve There is moderate mitral annular calcification. There is no mitral valve stenosis. Trivial mitral valve insufficiency. Tricuspid Valve There is no tricuspid stenosis. Trivial tricuspid valve insufficiency. Pulmonary artery systolic pressure is 40 mmHg. Aortic Valve Trisinus/trileaflet aortic valve. There is no aortic stenosis. Trivial aortic valve insufficiency. Pulmonic Valve There is no pulmonic valvular stenosis. No pulmonic valve insufficiency. Great Vessels Normal aortic root. Pericardium/Pleural No pericardial effusion. MMode/2D Measurements & Calculations LVIDd: 4.6 cm IVSd: 1.8 cm Ao root diam: 3.8 cm LVIDs: 3.3 cm LVPWd: 1.2 cm FS: 28.6 % LAV(MOD-bp): 78.6 ml LVAd ap4: 29.4 cm2 SV(MOD-sp4): 68.5 ml LAV(MOD-bp) Indexed: 40.6 ml/m2 LVLd ap4: 7.8 cm LAV(MOD-sp2): 95.5 ml EDV(MOD-sp4): 90.8 ml LAV(MOD-sp4): 66.9 ml EDV(sp4-el): 93.6 ml LVAs ap4: 12.2 cm2 LVLs ap4: 5.8 cm ESV(MOD-sp4): 22.3 ml ESV(sp4-el): 22.0 ml EF(MOD-sp4): 75.4 % EF(sp4-el): 76.5 % SV(sp4-el): 71.6 ml LA A4 area: 22.5 cm2 LA dimension(2D): 3.4 cm RA A4 area: 10.1 cm2 TAPSE: 2.8 cm Time Measurements MV dec time: 0.22 sec Doppler Measurements & Calculations MV E max joshua: 59.3 cm/sec Lat Peak E' Joshua: 9.2 cm/sec Med Peak E' Joshua: 4.9 cm/sec MV A max joshua: 62.6 cm/sec E/E' lat: 6.5 E/E' med: 12.1 MV E/A: 0.95 MV V2 max: 76.4 cm/sec Ao V2 max: 169.4 cm/sec MV max P.3 mmHg MV dec slope: 280.2 cm/sec2 Ao max P.5 mmHg MV V2 mean: 46.0 cm/sec Ao V2 mean: 114.7 cm/sec MV mean P.97 mmHg Ao mean P.1 mmHg MV V2 VTI: 25.9 cm Ao V2 VTI: 37.2 cm AV (velocity ratio): 1.00 LV V1 max: 152.5 cm/sec PA V2 max: 104.7 cm/sec LV V1 max P.3 mmHg PA V2 mean: 70.4 cm/sec LV V1 mean P.9 mmHg LV V1 mean: 103.4 cm/sec LV V1 VTI: 37.1 cm ECHO/Echo Complete Interpretation Summary The estimated ejection fraction is 60 %. Unable to assess diastolic dysfunction. The left atrium is moderately enlarged. Trivial mitral valve insufficiency. Trivial aortic valve insufficiency. Ordering Physician: Yair Serrano Referring Physician: Yair Serrano Performed By: Yanni Torres RCS
== END | disposition home or self-care (01) ==
PROVIDERS: PCP Nurse Practitioner Family; Referring Provider Internal Medicine Cardiovascular Disease; Visit Provider Internal Medicine Cardiovascular Disease
DX: R01.1 Cardiac murmur, unspecified (principal); R06.09 Other forms of dyspnea
CPT/HCPCS: 93306

== ENCOUNTER → 2024-01-20 | Outpatient (CLI) | payer MEDICARE, BC, SELFPAY ==
--- NOTE | 2024-01-23 14:37 | STRESSREP ---
Stress Test Report Date: 01/20/2024 Procedure: Exercise tolerance test Indications: CAD Consent: Per the patient Procedure: The patient exercised on a Karlos protocol for 5 minutes and 42 seconds achieving a peak heart rate of 123 bpm (79% predicted maximal heart rate) with a peak blood pressure 160/72 mmHg and a peak MET capacity of approximately 7 MET's. The baseline ECG demonstrated normal sinus rhythm. The peak exercise ECG demonstrated sinus tachycardia with no significant ischemic changes. [There were no cardiac dysrhythmias pretest, during exercise, or recovery]. The functional capacity was considered normal for age. The patient had no complaint of chest discomfort during exercise or recovery. The examination was discontinued secondary to shortness of breath. Impression: 1. Inability to reach 85% of maximal age-predicted heart rate decreases the sensitivity of this test 2. Stress test is negative for exercise-induced chest pain. 3. Stress test test is negative for exercise-induced EKG changes of ischemia. 4. Functional capacity is normal for age This note was generated with [employer]alite[employer] software. It may contain incorrect words, spelling, and punctuation that were not noted in checking the note before signing.
== END | disposition home or self-care (01) ==
LOC: CVS 10:04
PROVIDERS: PCP Nurse Practitioner Family; Referring Provider Internal Medicine Cardiovascular Disease; Visit Provider Internal Medicine Cardiovascular Disease
DX: I25.10 Atherosclerotic heart disease of native coronary artery without angina pectoris (principal); I25.84 Coronary atherosclerosis due to calcified coronary lesion; R01.1 Cardiac murmur, unspecified; R06.09 Other forms of dyspnea; E78.00 Pure hypercholesterolemia, unspecified
CPT/HCPCS: 93017

== ENCOUNTER → 2024-03-02 | Outpatient (CLI) | payer MEDICARE, BC, SELFPAY ==
[2024-03-02 10:27] LABS: Vitamin D,25 Hydroxy 34.6 ng/mL
[2024-03-02 10:30] LABS: Hemoglobin A1c 5.8 % (3.8-5.6)
[2024-03-02 10:32] LABS: ALB/GLOB Ratio 0.9 RATIO (0.9-2.4); AST(SGOT) 13 U/L (15-37); Alanine Aminotransfer ALT/SGPT 22 U/L (13-56); Albumin, Serum 3.5 g/dL (3.2-5.0); Alkaline Phosphatase 72 U/L (45-117); Anion Gap 3 (5-15); BUN 18 mg/dL (7-18); BUN/Creat Ratio 21.9 RATIO (10-20); Calcium,Total 9.2 mg/dL (8.5-10.1); Chloride 109 mmol/L (98-107); Cholesterol 155 mg/dL (200); Creatinine, Serum 0.82 mg/dL (0.55-1.02); EST Glomerular Filtration Rate 74 mL/min (>60); Est Glom Filt Rate - Afr Amer 90 mL/min (>60); Follicle Stimulating Hormone 78.3 mIU/mL; Free T3 2.7 pg/mL (2.18-3.98); Globulin 3.7 g/dL (2.2-4.2); Glucose 98 mg/dL (74-106); High Density Lipoprotein 52 mg/dL; Luteinizing Hormone 32.8 mIU/mL; Potassium 4.2 mmol/L (3.5-5.1); Prolactin 8.7 ng/mL; Protein, Total 7.2 g/dL (6.4-8.2); Sodium Level 139 mmol/L (136-145); T4 Free Direct 0.73 ng/dL (0.76-1.46); Triglycerides 105 mg/dL; Very Low Density Lipoprotein 21 mg/dL (5-40)
[2024-03-05 17:07] LABS: Adrenocorticotropic Hormone 16.1 pg/mL (7.2-63.3); Insulin Like Growth Factor 192 ng/mL (57-202)
== END | disposition home or self-care (01) ==
LOC: LAB 08:39
PROVIDERS: PCP Nurse Practitioner Family; Visit Provider Internal Medicine Endocrinology, Diabetes & Metabolism
DX: Z98.890 Other specified postprocedural states (principal); D35.2 Benign neoplasm of pituitary gland; E78.2 Mixed hyperlipidemia; R73.09 Other abnormal glucose
CPT/HCPCS: 36415; 80053; 80061; 82024; 82306; 82533; 83001; 83002; 83036; 84146; 84305; 84439; 84481

== ENCOUNTER 2024-07-04 14:24 | Outpatient (RCR) | payer MEDICARE, BC, SELFPAY | END 2024-07-04 19:00 | disposition home or self-care (01) | LOC: PT 14:24 | PROVIDERS: PCP Nurse Practitioner Family; Referring Provider Orthopaedic Surgery Sports Medicine; Visit Provider Orthopaedic Surgery Sports Medicine | DX: M17.11 Unilateral primary osteoarthritis, right knee (principal) | CPT/HCPCS: 97110; 97161 ==

== ENCOUNTER → 2024-12-04 | Outpatient (CLI) | payer MEDICARE, BC, SELFPAY ==
--- NOTE | 2024-12-04 14:20 | CT_ITS ---
PROCEDURE: LOW DOSE CT LUNG SCREENING 12/04/2024 REASON FOR EXAM: LUNG CANCER SCREENING Patient has smoked 1 pack per day for 30 years. Patient stopped smoking in 2022. TECHNIQUE: Low Dose CT Lung screening without contrast. Coronal and Sagittal reconstruction series were provided. One or more dose reduction techniques were used (e.g., Automated exposure control, adjustment of the mA and/or kV according to patient size, use of iterative reconstruction technique). REFERENCE LINK: [facility] Lung-RADS RADIATION DOSE SUMMARY: CTDlvol: 3.02 mGy DLP: 103.82 mGycm COMPARISON: Comparison is made with prior study dated September 13, 2023. FINDINGS: PULMONARY NODULES: (Only nodules >3mm are reported) Nodules described below are on series 1 unless otherwise specified. Pulmonary Nodules: No suspicious nodules are seen. Stable calcified granuloma in the lateral basilar segment of the right lower lobe. Hardware:None Lymph Nodes:Unremarkable Heart and Vasculature:The heart is not enlarged.. The root of the ascending thoracic aorta measures upper limits of normal at 4 cm. Coronary Artery Calcifications: Present Lungs and Airways: Mild emphysematous changes are present. Pleura:Unremarkable Upper Abdomen:Unremarkable Bones:Degenerative changes of the thoracic spine. CT/Low Dose CT Lung Screening IMPRESSION: Stable examination. Coronary artery calcification (CAC) is is present Lung-RADS Category: 2 BENIGN (BASED ON IMAGING FEATURES OR INDOLENT BEHAVIOR). RECOMMEND 12-MONTH SCREENING LDCT. Other Significant Findings: None. Reading Location: [id number]
== END | disposition home or self-care (01) ==
LOC: CT 14:11
PROVIDERS: PCP Nurse Practitioner Family; Referring Provider Nurse Practitioner Family; Visit Provider Nurse Practitioner Family
DX: Z12.2 Encounter for screening for malignant neoplasm of respiratory organs (principal); Z87.891 Personal history of nicotine dependence
CPT/HCPCS: 71271

== ENCOUNTER → 2025-03-15 | Outpatient (CLI) | payer MEDICARE, BC, SELFPAY ==
[2025-03-15 12:58] LABS: Hematocrit 40.2 % (37-47); Hemoglobin 13.6 g/dL (12.0-15.0); Immature Granulocytes Count 0.010 X10^3/uL (0.0-0.0); Mean Corp Hgb Conc 33.8 g/dL (32-36); Mean Corpuscular Volume 89.3 fL (81-99); Mean Platelet Vol. 10.0 fl (6.2-12.0); NRBC Flagged by Analyzer 0 % (0-5); Platelet Count 251 K/mm3 (150-450); RBC Distribution Width CV 13.3 % (11.6-14.6); RBC Distribution Width SD 43.8 fl (35.1-43.9); Red Blood Count 4.50 M/mm3 (4.2-5.4); White Blood Count 7.1 K/mm3 (4.4-11.0)
[2025-03-15 13:46] LABS: AST(SGOT) 23 U/L (<=31); Alanine Aminotransfer ALT/SGPT 23 U/L (<=34); Albumin, Serum 4.3 g/dL (3.4-4.8); Alkaline Phosphatase 66 U/L (35-104); Anion Gap 11 (5-15); BUN 16 mg/dL (4-19); BUN/Creat Ratio 18.0 RATIO (10-20); Calcium,Total 10.0 mg/dL (7.6-11.0); Carbon Dioxide 25.9 mmol/L (21.0-32.0); Chloride 103 mmol/L (98-108); Cholesterol 191 mg/dL (<=200); Globulin 3.1 g/dL (2.2-4.2); Glucose 97 mg/dL (70-99); Low Density Lipoprotein Calc. 111 mg/dL; Potassium 4.3 mmol/L (3.3-5.1); Triglycerides 111 mg/dL; Very Low Density Lipoprotein 22 mg/dL (5-40); cholesterol:hdl ratio screen 3.29
== END | disposition home or self-care (01) ==
LOC: LAB 12:07
PROVIDERS: PCP Nurse Practitioner Family; Referring Provider Nurse Practitioner Family; Visit Provider Nurse Practitioner Family
DX: E78.5 Hyperlipidemia, unspecified (principal); R73.01 Impaired fasting glucose; I10 Essential (primary) hypertension; E04.1 Nontoxic single thyroid nodule
CPT/HCPCS: 36415; 80053; 80061; 83036; 84439; 84443; 85025

== ENCOUNTER → 2025-09-03 | Outpatient (CLI) | payer MEDICARE, BC, SELFPAY ==
--- NOTE | 2025-09-03 11:45 | RAD_ITS ---
PROCEDURE: CHEST PA AND LATERAL 09/03/2025 REASON FOR EXAM: Fever and cough TECHNIQUE: Procedure Code: RADCXR Modality: DX Procedure: CHEST PA AND LATERAL COMPARISON: CT from 2023 FINDINGS: Hardware: None Heart: The heart size is normal. Mediastinum: The mediastinal contour is unremarkable. Lungs: The lungs are clear. Bones: Degenerative bony changes, particularly noted in the shoulders with significant narrowing of the glenohumeral joints RAD/Chest PA and Lateral IMPRESSION: No acute pulmonary process Reading Location: [id number]
== END | disposition home or self-care (01) ==
LOC: RAD 11:37
PROVIDERS: PCP Nurse Practitioner Family; Referring Provider Nurse Practitioner Family; Visit Provider Nurse Practitioner Family
DX: R05.9 Cough, unspecified (principal); R07.9 Chest pain, unspecified
CPT/HCPCS: 71046